=== PATIENT | male | born 1960 | race Caucasian/White ===

== ENCOUNTER 2025-01-17 10:15 | Emergency (ER) | payer OTHER, MEDICAID, SELFPAY ==
[2025-01-17 10:17] VITALS: BMI 34.9
[2025-01-17 10:22] VITALS: BP 121/79; PULSE 79; RESP 16; TEMP 36.8; O2SAT 96; BMI 35.2
[2025-01-17 11:09] VITALS: PULSE 76
[2025-01-17] MEDS: TERBUTALINE SULF INJ 1 MG/ML VIAL 0.5 MG SC (11:09)
[2025-01-17] MEDS: MORPHINE SULF INJ 10 MG/ML VIAL 4 MG IVP (11:17)
[2025-01-17] MEDS: SODIUM CHLORIDE 0.9% 1000 ML 1,000 ML 999 ML IV (11:17)
[2025-01-17] MEDS: LIDOCAINE HCL 1% 20 ML VIAL 10 ML INFL (11:17)
--- NOTE | 2025-01-17 11:20 | PD.EDMALE ---
ED Male Genitalurinary RME/HPI General Chief complaint: Urogenital-Male Stated complaint: ERECTION SINCE 229 TODAY Time Seen by Provider: 01/17/25 10:34 Arrival date/time: 01/17/25 10:15 RME / HPI RME / HPI Narrative: 64 year old male with history of hyperlipidemia presents to the ED for erection beginning at 02:30 AM. Accompanied by pain. Reports he attempted a hot bath without improvement. Denies use of erectile dysfunction medications or blood thinners. States only medications he is currently on are Rosuvastatin, Trazadone, and Vitamin D. No other associated symptoms reported. Related Data Home Medications ?Medication ?Instructions ?Recorded ?Confirmed rosuvastatin 20 mg tablet 20 mg PO HS 10/03/21 10/03/21 Allergies Allergy/AdvReac Type Severity Reaction Status Date / Time No Known Allergies Allergy Verified 01/17/25 10:16 Review of Systems Review of Systems Narrative Review of Systems: Gen: No fever, no chills, no weight loss EYES: No discharge, no visual changes, no pain HEENT: No ear pain, no congestion, no sore throat PULM: no shortness of breath, no cough, no congestion CV: No chest pain, no dyspnea on exertion, no palpitations, no chest tightness GI: No nausea, no vomiting, no diarrhea, no pain, no constipation : +erection with pain. No frequency, no urgency,? no dysuria Musc/skel: No joint pain, no back pain Skin: No rash, no ecchymosis, no lesions Neuro: No weakness, no headache Past Medical History Past Medical History CARDIAC: Positive Cardiac Disorders and Hypercholesterolemia MUSCULOSKELETAL: Positive Musculoskeletal Disorders and Arthritis Family History FAMILY HISTORY: Negative Family Cancer Surgical History SURGICAL: Positive Neurologic Surgery (2 PLATES IN SKULL; SKULL FRACTURE 1984) Social History SMOKING STATUS: Current every day smoker ED Exam Narrative Physical exam: GENERAL APPEARANCE: AxOx4, no obvious distress, nontoxic appearing HEENT: NC, AT. MMM. EOMI, clear conjunctiva, oropharynx clear. NECK: Supple without lymphadenopathy. No stiffness or restricted ROM. HEART: Normal rate and regular rhythm, normal S1/S1, no m/r/g LUNGS: CTAB, moving air well. No crackles or wheezes are heard. ABDOMEN: Soft, nontender, nondistended with good bowel sounds heard. : Full rigid priaprism with dorsal rigidity, slightly soft on ventral side, no lesions, tender, no discoloration BACK: No midline C/T/L spine pain or deformity, No CVAT, no obvious deformity. EXTREMITIES: Without cyanosis, clubbing or edema. MUSCULOSKELETAL: FROM of all major joints, no chest tenderness NEUROLOGICAL: Grossly nonfocal. Alert and oriented, moving all 4 extremities. CN not formally tested but appear grossly intact. Skin: Warm and dry without any rash. Course Quality Measures none Orders Category Date Time Status CBC Stat Lab 01/17/25 11:13 Completed CMP [Comprehensive Metabolic Panel] Stat Lab 01/17/25 11:13 Completed Lidocaine 1% 20 ml [Xylocaine 1% 20 ML] Med 01/17/25 11:08 Discontinued 10 ml INFL X1 ONE Morphine Inj Med 01/17/25 10:54 Discontinued 4 mg IVP X1 ONE PHENYLEPHRINE INJ in NS [Omar-synephrine Inj/Ns] Med 01/17/25 12:15 Discontinued 200 mcg IVP X1 ONE Sodium Chloride 0.9% 1000 ml [Ns] 1,000 ml Med 01/17/25 10:54 Discontinued IV 999 mls/hr Terbutaline Sulf Inj [Brethine Inj] Med 01/17/25 10:58 Discontinued 0.5 mg SC X1 ONE Terbutaline Sulf [Brethine] Med 01/17/25 10:59 Discontinued 5 mg PO X1 ONE Reevaluation(s) Reevaluation #1: Patients erection is softer after 200mcg of Phenylephrine was injected on the left side of captivus. Will reassess in 20-30 minutes. Time: 13:15 Reevaluation #2: On reassessment there is improvement and patient feels well enough to go home. Will DC home. Time: 13:45 Vital Signs Vital signs: Vital Signs Temperature 98.3 F 01/17/25 10:22 Pulse Rate 79 01/17/25 10:22 Respiratory Rate 16 01/17/25 10:22 Blood Pressure 121/79 01/17/25 10:22 Pulse Oximetry (%) 96 01/17/25 10:22 Oxygen Delivery Method Room Air 01/17/25 10:22 Pulse ox is 96% on room air which is adequate. Procedures -ED Nerve Block Nerve Block 1: Time out performed: No Local Anesthetic: lidocaine 1% Amount of anesthesia used (mL): 2 Side: left (dorsal penile nerve) and right (dorsal penile nerve) Nerve Blocks: other (penile) Procedure Successful: Yes Patient Tolerated Procedure: well Complications: none Urogenital - Male MDM Narrative MDM Narrative:: Mr. Benedict presents with a prolonged (greater than 4 hours) erection/priapism that is subjectively tender and tender to palpation concerning for ischemic priapism. As a result rapid intervention was initiated here in the emergency department starting with warm compresses followed by terbinafine subcutaneous which were both unsuccessful. As a result, cavernous injections/aspiration needed therefore patient underwent a penile nerve block for pain management. After successful penile nerve block, patient required injection of 20 mcg of phenylephrine at the 2 o'clock position, at the proximal third position of the shaft with successful detumescence. Pain resolved, patient was able to urinate well without obstruction afterwards. His med list suggests this is a complication of his trazodone, and he has been advised to refrain from taking. I have reviewed alternatives of healthy sleeping hygiene. If you require further medication management of his insomnia he is to follow-up with his primary care physician for I, Regina Hayward am scribing for and in the presence of Dr. Diaz. Patient data External records reviewed:: [facility] previous records (I reviewed ED visit on 12/14/2018 ) Clinical information provided by:: patient Social determinants that could affect healthcare access:: none Patient has the following chronic illnesses:: HLD, insomnia How is presenting disease/condition affected by chronic disease/condition?: uneffected by Evaluation data The following diagnostics were reviewed and interpreted by me:: lab results Lab and/or radiology exams considered but not ordered:: None Interpretation Summary: As noted above Medications / Prescriptions Medications or Prescriptions considered but not ordered:: None Medication administrations:: Medication Administration History Discontinued Medications Sodium Chloride (Ns) 1,000 mls @ 999 mls/hr IV .Q1H1M ONE Stop: 01/17/25 11:54 Last Infusion: 01/17/25 12:16 Dose: Infused Documented By: Admin: 01/17/25 11:17 Dose: 999 mls/hr Documented By: MIGUELINA Lidocaine HCl (Lidocaine Hcl 1% 20 Ml Vial) 10 ml INFL X1 ONE Stop: 01/17/25 11:09 Last Admin: 01/17/25 11:17 Dose: 10 ml Documented By: MIGUELINA Comments: aDMINISTERED BY PROVIDER Morphine Sulfate (Morphine Sulf Inj 10 Mg/Ml Vial) 4 mg IVP X1 ONE Stop: 01/17/25 10:55 Last Admin: 01/17/25 11:17 Dose: 4 mg Documented By: MIGUELINA Phenylephrine HCl (Phenylephrine Inj In Ns 100 Mcg/Ml 10 Ml Syringe) 200 mcg IVP X1 ONE Stop: 01/17/25 12:16 Last Admin: 01/17/25 12:14 Dose: 200 mcg Documented By: HOLLY Comments: MEDICATION GIVEN TO DR. DIAZ AT THIS TIME. Terbutaline Sulfate (Terbutaline Sulf Inj 1 Mg/Ml Vial) 0.5 mg SC X1 ONE Stop: 01/17/25 10:59 Last Admin: 01/17/25 11:09 Dose: 0.5 mg Documented By: MIGUELINA Terbutaline Sulfate (Terbutaline Sulf 2.5 Mg Tablet) 5 mg PO X1 ONE Stop: 01/17/25 11:00 Last Admin: 01/17/25 11:08 Dose: Not Given Documented By: MIGUELINA Non-Admin Reason: Cancelled by Provider See above Consultations Consultation(s) initiated? (list below): No Diagnosis Urogenital Male Differential Diagnosis: priapism and urethritis Most likely diagnosis given after review of the tests above:: Insomnia Drug-induced priapism Admission Indicated Admission indicated?: not indicated Admission Request Was there a request for admission?: No Disposition Plan Disposition Plan: Discharge Discharge Attestation Discharge Attestation: The patient and all family members were given an opportunity to ask questions and understood the discharge instructions. Discharge instructions specifically effects, indications for sooner follow up or return to the emergency department, and the expected course of current diagnosis. Patient condition: Stable Discharge Plan Plan Patient Disposition: HOME (Self Care) Prescriptions/Referrals Prescriptions/Med Rec: No Action rosuvastatin 20 mg tablet 20 mg PO HS Patient Comments: TAKE ONE TABLET BY MOUTH EVERY DAY Referrals: Jessica Chaney NP [Primary Care Provider] - In 1 week Problem List Clinical Impression: Insomnia, Drug-induced priapism Patient/Caregiver Discharge Instructions Education Materials: ED Insomnia, ED Priapism Additional Instructions: Stop using trazadone. Follow good sleep hygiene practices. Follow-up with your primary doctor in 2-3 days for recheck. Print Language: Nigerian Stand Alone Forms: Karen Award Info., Patient Portal Info Letter
[2025-01-17 11:22] LABS: Basophils # (Auto) 0.1 Thou/mm3 (0.0-0.2); Basophils % (Auto) 1 % (0-2.5); Eosinophils # (Auto) 0.2 Thou/mm3 (0.0-0.5); Eosinophils % (Auto) 3 % (0-10); Hematocrit 41.9 % (41.0-53.0); Hemoglobin 13.9 g/dL (13.5-16.0); Immature Granulocytes % (Auto) 0 % (0-0); Immature Granulocytes Auto 0.02 Thou/mm3 (0.00-0.00); Lymphocytes # (Auto) 2.4 Thou/mm3 (1.0-4.8); Lymphocytes % (Auto) 28 % (10-50); Mean Corpuscular HGB Conc 33.2 g/dl (31.0-37.0); Mean Corpuscular Volume 91 fL (80-100); Monocytes # (Auto) 0.6 Thou/mm3 (0.0-0.8); Monocytes % (Auto) 7 % (0-12); Neutrophils # (Auto) 5.2 Thou/mm3 (1.8-7.7); Neutrophils % (Auto) 61 % (37-80); Nucleated Red Blood Cell % 0 /100 WBC (0); Platelet Count 135 Thou/mm3 (140-440); RDW Standard Deviation 42.8 fL (35.1-43.9); Red Blood Count 4.63 Miln/mm3 (4.50-5.90); White Blood Count 8.5 Thou/mm3 (3.8-10.6)
[2025-01-17 11:40] LABS: Alanine Aminotransferase 14 U/L (10-49); Albumin, Serum 4.3 gm/dL (3.4-4.8); Albumin/Globulin Ratio 1.9 (1.2-2.2); Alkaline Phosphatase 80 U/L (46-116); Anion Gap 4 (7-16); Aspartate Amino Transferase 17 U/L (0-34); BUN/Creatinine Ratio 11 Ratio (12-20); Bilirubin,Total 0.6 mg/dL (0.3-1.2); Blood Urea Nitrogen 10 mg/dL (9-23); Calcium 9.3 mg/dL (8.3-10.6); Calcium (Corrected) 9.3 mg/dL (8.5-10.1); Chloride 111 mMol/L (98-107); Creatinine (Component) 0.9 mg/dL (0.6-1.3); Globulin 2.3 gm/dL (2.3-3.5); Glucose 118 mg/dL (74-106); Osmolality,Calculated 281 (275-295); Potassium 4.2 mMol/L (3.4-5.1); Sodium 141 mMol/L (136-145); Total Protein 6.6 gm/dL (5.7-8.2); eGFR > 60 See Note
[2025-01-17 12:14] VITALS: BP 147/68; PULSE 90
[2025-01-17] MEDS: PHENYLEPHRINE IVP (12:14)
[2025-01-17] MEDS: SODIUM CHLORIDE IVP (12:14)
[2025-01-17 12:15] VITALS: BP 147/68; PULSE 91; RESP 12; TEMP 36.3; O2SAT 97
[2025-01-17 14:06] VITALS: BP 115/71; PULSE 97; RESP 16; TEMP 36.7; O2SAT 100
== END 2025-01-17 14:30 | disposition home or self-care (01) ==
PROVIDERS: Emergency Provider Emergency Medicine; PCP Registered Nurse
DX: N48.33 Priapism, drug-induced (principal); G47.00 Insomnia, unspecified; T46.6X5A Adverse effect of antihyperlipidemic and antiarteriosclerotic drugs, initial encounter; T43.215A Adverse effect of selective serotonin and norepinephrine reuptake inhibitors, initial encounter; T45.2X5A Adverse effect of vitamins, initial encounter
CPT/HCPCS: 64450; 36415; 80053; 85025; 96361; 96374; 99284; J2270; J2371; J3105; J3490; J7030

== ENCOUNTER → 2025-09-10 | Outpatient (CLI) | payer OTHER, MEDICAID, SELFPAY ==
--- NOTE | 2025-09-10 09:00 | XR_ITS ---
Examination: CT chest, without intravenous contrast. Sagittal and coronal 2-D reconstructions. Exam date and time: September 10, 2025, 0840 hours INDICATIONS: Nicotine abuse, smoking history 50 years, low dose lung screening CTDI:vol (mGy) 21.7 DLP: (mGycm) 896 Technique: Multiple 3.0 mm axial sections of the chest to been obtained. Bone and lung density settings are obtained. Sagittal and coronal 2-D reconstructions have been obtained. Low dose protocols were performed. One or more of the following dose reduction techniques were used; automated exposure control, adjustment of the mA and/or KV according to patient size, use of iterative reconstruction technique. Findings: No thoracic aortic aneurysmal dilatation Pulmonary artery segments are not enlarged Significant calcification left main and left anterior descending coronary artery Mild enlargement cardiac contour. No paratracheal tracheobronchial or bronchopulmonary adenopathy 2 mm pulmonary nodule right upper lobe image 134 3 mm pulmonary nodule left lower lobe image 233 No pneumonia or pulmonary edema Small probable liver cysts Gallbladder is contracted, gallbladder wall axial image 173 is thickened Spleen not enlarged No pancreatic or adrenal mass Minimal perinephric stranding Moderate thoracic spondylosis, moderate osteopenia IMPRESSION: Subcentimeter noncalcified pulmonary nodules as above, with the studies baseline recommend 6-month follow-up CT chest without contrast
== END | disposition home or self-care (01) ==
PROVIDERS: PCP Internal Medicine; Referring Provider Internal Medicine; Visit Provider Internal Medicine
DX: R91.8 Other nonspecific abnormal finding of lung field (principal); Z71.6 Tobacco abuse counseling
CPT/HCPCS: 71250

== ENCOUNTER → 2025-09-21 | Outpatient (CLI) | payer OTHER, MEDICAID, SELFPAY ==
--- NOTE | 2025-09-21 14:45 | XR_ITS ---
EXAMINATION: Ultrasound abdominal aorta TECHNIQUE: Grayscale sonographic images abdominal aorta Date and time: September 21, 2025, 1430 hours INDICATIONS: Smoking history 50 years FINDINGS: Dimension proximal aorta 2.3 cm mid aorta 1.9 cm distal aorta 1.8 cm right iliac 1.1 cm left iliac 1.3 cm IMPRESSION: Negative for abdominal aortic aneurysm
== END | disposition home or self-care (01) ==
PROVIDERS: PCP Internal Medicine; Referring Provider Internal Medicine; Visit Provider Internal Medicine
DX: F17.200 Nicotine dependence, unspecified, uncomplicated (principal)
CPT/HCPCS: 76770